=== PATIENT | female | born 1950 | race African-American/Black ===

== ENCOUNTER → 2016-04-27 | Outpatient (CLI) | payer MEDICARE, MEDICAID | LOC: RAD 09:08 | PROVIDERS: ATTEND Physician Assistant | DX: R51 Headache (principal) | CPT/HCPCS: 70450 ==

== ENCOUNTER 2016-10-11 09:38 | Emergency (ER) | payer MEDICARE, MEDICAID ==
[2016-10-11] MEDS ORDERED: PHENAZOPYRIDINE HCL 200 MG TABLET PO ONE (10:05)
--- NOTE | 2016-10-11 10:08 | ER Document Report ---
ED GI/ - General Chief Complaint: Flank Pain Stated Complaint: RIGHT SIDE FLANK PAIN Time Seen by Provider: 10/11/16 09:47 Notes: The patient is a 66-year-old female who presents with 2 days of constant right- sided abdominal pain with now radiation into right flank. She also started noticing some hematuria and dysuria today. She has never had a kidney stone in the past. She was feeling nauseous yesterday, but is no longer feeling any nausea. Denies fevers, chest pain, shortness of breath, numbness, tingling, blood thinner use, diarrhea or constipation. TRAVEL OUTSIDE OF THE [place] IN LAST 30 DAYS: No - Related Data Allergies/Adverse Reactions: phenytoin [From Dilantin] Allergy (Verified 10/11/16 10:15) Past Medical History - General Information source: Patient - Social History Smoking Status: Never Smoker Family History: Reviewed & Not Pertinent - Past Medical History Cardiac Medical History: Reports: Hx Hypertension Denies: Hx Coronary Artery Disease, Hx Heart Attack Pulmonary Medical History: Reports: Hx Bronchitis - 2011, Hx Pneumonia Denies: Hx Asthma, Hx COPD Neurological Medical History: Reports: Hx Seizures - childhood. Denies: Hx Cerebrovascular Accident Endocrine Medical History: Reports: Hx Diabetes Mellitus Type 2 Musculoskeltal Medical History: Reports Hx Arthritis - Hands Past Surgical History: Reports: Hx Section, Hx Hysterectomy - Immunizations Hx Diphtheria, Pertussis, Tetanus Vaccination: Yes Review of Systems - Review of Systems Notes: REVIEW OF SYSTEMS: CONSTITUTIONAL: -fevers, -chills EENT: -eye pain, -difficulty swallowing, -nasal congestion CARDIOVASCULAR:-chest pain, -syncope. RESPIRATORY: -cough, -SOB GASTROINTESTINAL: -abdominal pain, - nausea, -vomiting, -diarrhea GENITOURINARY: +dysuria, +hematuria MUSCULOSKELETAL: +right flank pain, -neck pain SKIN: -rash or skin lesions. HEMATOLOGIC: -easy bruising or bleeding. LYMPHATIC: -swollen, enlarged glands. NEUROLOGICAL: -altered mental status or loss of consciousness, -headache, - neurologic symptoms PSYCHIATRIC: -anxiety, -depression. ALL OTHER SYSTEMS REVIEWED AND NEGATIVE. Physical Exam - Vital signs Vitals: Temp Pulse Resp BP Pulse Ox 97.9 F 87 17 120/74 96 10/11/16 09:48 10/11/16 09:48 10/11/16 09:48 10/11/16 09:48 10/11/16 09:48 - Notes Notes: PHYSICAL EXAMINATION: GENERAL: Well-appearing, well-nourished and in no acute distress. HEAD: Atraumatic, normocephalic. EYES: Pupils equal round and reactive to light, extraocular movements intact, sclera anicteric, conjunctiva are normal. ENT: nares patent, oropharynx clear without exudates. Moist mucous membranes. NECK: Normal range of motion, supple without lymphadenopathy LUNGS: Breath sounds clear to auscultation bilaterally and equal. No wheezes rales or rhonchi. HEART: Regular rate and rhythm without murmurs ABDOMEN: Soft, mild suprapubic tenderness, normoactive bowel sounds. Right CVA tenderness. No guarding, no rebound. No masses appreciated. EXTREMITIES: Normal range of motion, no pitting or edema. No cyanosis. NEUROLOGICAL: Cranial nerves grossly intact. Normal speech, normal gait. Normal sensory and motor exams. PSYCH: Normal mood, normal affect. SKIN: Warm, Dry, normal turgor, no rashes or lesions noted. Course - Re-evaluation Re-evalutation: Urinalysis shows large amount of blood and large WBCs with positive leuk esterase. CT does not show any evidence of kidney stones or any other acute processes. Will treat patient for pyelonephritis with Keflex. She appears very well and labs are unremarkable. Given strict return precautions and she understands. - Vital Signs Vital signs: Temp Pulse Resp BP Pulse Ox 97.3 F 79 17 116/71 94 10/11/16 11:00 10/11/16 11:00 10/11/16 11:00 10/11/16 11:00 10/11/16 11:00 - Laboratory Result Diagrams: 10/11/16 10:08 10/11/16 10:08 Laboratory results interpreted by me: 10/11/16 10/11/16 10/11/16 09:52 10:08 10:08 Plt Count 132 L Glucose 187 H Urine Protein 100 H Urine Blood LARGE H Ur Leukocyte Esterase LARGE H Urine Ascorbic Acid 40 H - Diagnostic Test Radiology reviewed: Image reviewed, Reports reviewed Radiology results interpreted by me: CT A/P: NAD Discharge - Discharge Clinical Impression: Pyelonephritis, acute Condition: Stable Disposition: HOME, SELF-CARE Additional Instructions: PYELONEPHRITIS: Your evaluation shows evidence of pyelonephritis. This is an infection in the kidney. Typical symptoms are fever, pain in the flank, pain on urination, and frequent urination. Many cases of pyelonephritis can be treated at home. Hospital care may be necessary for patients who are very ill, or elderly or . Pyelonephritis is treated with antibiotics. Be sure to take all the medication as prescribed. Drink plenty of liquids (about three quarts per day) . You may take acetaminophen for fever. You should feel significantly improved within two days. You should have a recheck of your urine in about one week to insure that the infection is gone. Return for a re-examination if your symptoms worsen in any way -- such as high fever, shaking chills, severe weakness or dizziness, severe pain, or inability to pass your urine. ANTIBIOTIC THERAPY: You have been given an antibiotic prescription. It's important that you take all the medication, unless instructed otherwise by your physician. Failure to complete the entire course can result in relapse of your condition. Common side effects of antibiotics include nausea, intestinal cramping, or diarrhea. Women may develop vaginal yeast infections, and babies can get yeast (thrush) in the mouth following the use of antibiotics. Contact your physician if you develop significant side effects from this medication. Allergy to this antibiotic can result in hives, wheezing, faintness, or itching. If symptoms of allergy occur, stop the medication and call the doctor. CEPHALEXIN: The antibiotic you've been prescribed is a member of the cephalosporin class. This type of antibiotic covers a wide variety of infections, including those of the skin, lungs, and urinary tract. It's useful for staph infections. This antibiotic is slightly similar to the penicillin family. In rare cases , a person who is allergic to penicillin will also be allergic to this medication. If you have had a severe allergic reaction to penicillin, and have not taken this antibiotic since that time, notify your doctor. Antibiotics which cover many germs ("broad spectrum" antibiotics) are more likely to cause diarrhea or "yeast" infections. Women prone to vaginal yeast problems may suffer an attack after taking this antibiotic. In infants, oral thrush (white spots "stuck" on the cheek) or yeast diaper rash may result. See your doctor if these problems occur. Call at once if you develop itching, hives , shortness of breath, or lightheadedness. USE OF ACETAMINOPHEN (Tylenol): Acetaminophen may be taken for pain relief or fever control. It's much safer than aspirin, offering a wider range of "safe" dosages. It is safe during . Some brand names are Tylenol, Panadol, Datril, Anacin 3, Tempra, and Liquiprin. Acetaminophen can be repeated every four hours. The following are maximum recommended dosages: >89 pounds or adults 650 mg to 900 mg Acetaminophen can be repeated every four hours. Maximum dose not to exceed 4000 mg a day. FOLLOW-UP CARE: If you have been referred to a physician for follow-up care, call the physician s office for an appointment as you were instructed or within the next two days. If you experience worsening or a significant change in your symptoms, notify the physician immediately or return to the Emergency Department at any time for re-evaluation. Prescriptions: Cephalexin Monohydrate [Keflex 500 mg Capsule] 500 mg PO TID #30 capsule Phenazopyrid/Cran/Vit C/B.coag [Azo Urinary Tract Health Pack] 1 each PO Q8H PRN #9 tablet PRN Reason: Referrals: LORRI HAYS MD [ACTIVE STAFF] - Follow up as needed
[2016-10-11 10:11] LABS: APPEARANCE,URINE CLOUDY; BILIRUBIN,URINE NEGATIVE (NEGATIVE); GLUCOSE, URINE NEGATIVE (NEGATIVE); KETONES,URINE NEGATIVE (NEGATIVE); LEUKOCYTE ESTERASE,URINE LARGE (NEGATIVE); NITRITE,URINE NEGATIVE (NEGATIVE); PROTEIN,URINE 100 mg/dL (NEGATIVE); URINE SPECIFIC GRAVITY 1.023; UROBILINOGEN,URINE NEGATIVE mg/dL (<2.0)
[2016-10-11 10:19] LABS: ABSOLUTE EOSINOPHILS # (AUTO) 0.1 10^3/uL (0.0-0.6); ABSOLUTE LYMPHOCYTES (AUTO) 1.6 10^3/uL (0.5-4.7); ABSOLUTE MONOCYTES (AUTO) 0.4 10^3/uL (0.1-1.4); ABSOLUTE NEUT (AUTO) 4.6 10^3/uL (1.7-8.2); BASOPHILS % (AUTO) 0.3 % (0-2); EOSINOPHILS % (AUTO) 1.1 % (0-6); HEMATOCRIT 39.7 % (36.0-47.0); HEMOGLOBIN 12.9 g/dL (12.0-15.5); MEAN CORPUSCULAR HEMOGLOBIN 28.7 pg (27.0-33.4); MEAN CORPUSCULAR HGB CONC 32.6 g/dL (32.0-36.0); MEAN CORPUSCULAR VOLUME 88 fl (80-97); MONOCYTES % (AUTO) 5.7 % (3-13); RED BLOOD COUNT 4.51 10^6/uL (3.72-5.28); RED CELL DISTRIBUTION WIDTH 13.6 % (11.5-14.0); SEGMENTED NEUTROPHILS % (AUTO) 68.9 % (42-78); WHITE BLOOD COUNT 6.7 10^3/uL (4.0-10.5)
[2016-10-11] MEDS ORDERED: CEFTRIAXONE 1 GM/D5W RTU 50 ML IV ONE (10:19)
--- NOTE | 2016-10-11 10:27 | RADIOLOGY REPORT (SQ) ---
EXAM DESCRIPTION: CT LTD RENAL STONE PROTOCOL ON COMPLETED DATE/TIME: 10/11/2016 10:17 am REASON FOR STUDY: right flank pain COMPARISON: None. TECHNIQUE: CT scan of the abdomen and pelvis performed without intravenous or oral contrast. Images reviewed with lung, soft tissue, and bone windows. Reconstructed coronal and sagittal MPR images revi ewed. All images stored on PACS. All CT scanners at this facility use dose modulation, iterative reconstruction, and/or weight based d osing when appropriate to reduce radiation dose to as low as reasonably achievable (ALARA). [facility]: Dose Right [facility]: CareDose [facility]: Dose Right [facility]: Teradose 4D [facility]: Smart [employer] RADIATION DOSE: mGy. LIMITATIONS: None. FINDINGS: LOWER CHEST: No significant findings. No nodules or infiltrates. NON-CONTRASTED LIVER, SPLEEN, ADRENALS: Evaluation limited by lack of IV contrast. No identified sign ificant masses. PANCREAS: No masses. No peripancreatic inflammatory changes. GALLBLADDER: No identified stones by CT criteria. No inflammatory changes to suggest cholecystitis. RIGHT KIDNEY AND URETER: No suspicious masses. Assessment limited by lack of IV contrast. No signif icant calcifications. No hydronephrosis or hydroureter. LEFT KIDNEY AND URETER: No suspicious masses. Assessment limited by lack of IV contrast. No signifi cant calcifications. No hydronephrosis or hydroureter. AORTA AND RETROPERITONEUM: No aneurysm. No retroperitoneal masses or adenopathy. BOWEL AND PERITONEAL CAVITY: No obvious masses or inflammatory changes. No free fluid. APPENDIX: Normal. PELVIS, BLADDER, AND ABDOMINAL WALL:No abnormal masses. No free fluid. Bladder normal. BONES: No significant findings. OTHER: No other significant finding. IMPRESSION: NO SIGNIFICANT OR ACUTE PROCESS IN THE ABDOMEN OR PELVIS. TECHNICAL DOCUMENTATION: JOB ID: [id number] Quality ID # [id number]: Final reports with documentation of one or more dose reduction techniques (e.g., Au tomated exposure control, adjustment of the mA and/or kV according to patient size, use of iterative reconstruction technique) 2010 [employer]- All Rights Reserved
[2016-10-11] MEDS ORDERED: CEPHALEXIN 500 MG CAPSULE PO ONE (10:32)
[2016-10-11 10:35] LABS: ALANINE AMINOTRANSFERASE 25 U/L (9-52); ALBUMIN 3.9 g/dL (3.5-5.0); ALKALINE PHOSPHATASE 87 U/L (38-126); ANION GAP 10 (5-19); ASPARTATE AMINO TRANSFERASE 17 U/L (14-36); BILIRUBIN,DIRECT 0.2 mg/dL (0.0-0.4); BILIRUBIN,TOTAL 0.4 mg/dL (0.2-1.3); BLOOD UREA NITROGEN 16 mg/dL (7-20); CALCIUM 9.5 mg/dL (8.4-10.2); CARBON DIOXIDE 26 mmol/L (22-30); CHLORIDE 107 mmol/L (98-107); GLUCOSE 187 mg/dL (75-110); POTASSIUM 3.6 mmol/L (3.6-5.0); SODIUM 142.8 mmol/L (137-145); TOTAL PROTEIN 6.8 g/dL (6.3-8.2)
[2016-10-11 11:00] VITALS: BP 116/71
== END 2016-10-11 11:00 | disposition home or self-care (01) ==
LOC: ER 09:38
DX: N10 Acute pyelonephritis (principal); R10.9 Unspecified abdominal pain; R31.9 Hematuria, unspecified; R30.0 Dysuria; R11.0 Nausea
CPT/HCPCS: 99284; 36415; 87086; 85025; 80053; 81001; 76380; A9270 ×2; J3490

== ENCOUNTER → 2017-07-26 | Outpatient (CLI) | payer MEDICARE, MEDICAID ==
--- NOTE | 2017-07-26 16:53 | RADIOLOGY REPORT (SQ) ---
EXAM DESCRIPTION: MRI LUMBAR SPINE WITHOUT COMPLETED DATE/TIME: 07/26/2017 2:08 pm REASON FOR STUDY: LOW BACK PAIN (M54.5) M54.5 LOW BACK PAIN COMPARISON: CT abdomen pelvis 10/11/2016 TECHNIQUE: Sagittal and Axial imaging includes T1, T2, STIR and gradient echo sequences. Coronal T2/ HASTE imaging. LIMITATIONS: None. FINDINGS: VISUALIZED UPPER ABDOMEN: Limited evaluation. No acute or suspicious findings suggested. SEGMENTATION: No transitional anatomy. The lowest well-developed disc space is labeled L5-S1. ALIGNMENT: Anatomic. VERTEBRAE: Intact. BONE MARROW: Normal. No marrow replacement or reactive changes. DISC SIGNAL: Decreased T2 weighted intervertebral disc signal throughout the lumbar spine POSTERIOR ELEMENTS: Generally intact. No pars defect evident. HARDWARE: None in the spine. CORD AND CONUS: Conus is at the T12-L1 level SOFT TISSUES: No aortic aneurysm seen. No bulky retroperitoneal adenopathy or mass. No paraspinal mas s or fluid. T12-L1: No central or foraminal stenosis. L1-L2: No central or foraminal stenosis. Mild bilateral facet hypertrophy. L2-L3: No central or foraminal stenosis. Moderate bilateral facet hypertrophy. L3-L4: Mild central canal stenosis results from broad diffuse posterior disc bulging and bulky bilate ral facet and ligament hypertrophy. Mild bilateral inferior foraminal narrowing without exiting L3 n erve root impingement. L4-L5: Mild central canal stenosis results from broad diffuse posterior disc bulge and bony spurring and bulky bilateral facet and ligament hypertrophy. Mild inferior foraminal narrowing without exitin g L4 nerve root impingement. L5-S1: Minimal posterior disc bulging and bony spurring, asymmetric facet hypertrophy right greater t fang left. No central stenosis. Mild bilateral foraminal narrowing without exiting L5 nerve root imp ingement. LOWER THORACIC: Incompletely imaged. No stenosis seen. SACRUM: Visualized upper sacrum intact. OTHER: No other significant findings. IMPRESSION: Degenerative changes lower lumbar spine. TECHNICAL DOCUMENTATION: JOB ID: [id number] [employer]- All Rights Reserved Reading location - IP/workstation name: [email or web address]
== END ==
LOC: RAD 13:15
PROVIDERS: ATTEND Family Medicine
DX: M54.5 Low back pain (principal); M47.896 Other spondylosis, lumbar region
CPT/HCPCS: 72148

== ENCOUNTER 2017-08-01 08:03 | Emergency (ER) | payer MEDICARE, MEDICAID ==
--- NOTE | 2017-08-01 08:54 | RADIOLOGY REPORT (SQ) ---
EXAM DESCRIPTION: SHOULDER LEFT 2 OR MORE VIEWS COMPLETED DATE/TIME: 08/01/2017 8:45 am REASON FOR STUDY: fall COMPARISON: None. NUMBER OF VIEWS: Three views. TECHNIQUE: Internal rotation, external rotation, and Y view images acquired of the left shoulder. LIMITATIONS: None. FINDINGS: MINERALIZATION: Normal. BONES: No acute fracture or dislocation. No worrisome bone lesions. JOINTS: No dislocation. VISUALIZED LUNGS AND RIBS: No pneumothorax. No rib fracture. SOFT TISSUES: No radiopaque foreign body. OTHER: No other significant finding. IMPRESSION: NO RADIOGRAPHIC EVIDENCE OF ACUTE INJURY. TECHNICAL DOCUMENTATION: JOB ID: [id number] [employer]- All Rights Reserved Reading location - IP/workstation name: [email or web address]
[2017-08-01] MEDS ORDERED: LIDOCAINE 5% (700 MG) TRANSDERMAL ADH..PATCH TP ONE (09:12)
[2017-08-01] MEDS ORDERED: TRAMADOL HCL 50 MG TABLET PO ONE (09:12)
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
[2017-08-01 10:24] VITALS: BP 120/80
== END 2017-08-01 10:23 | disposition home or self-care (01) ==
LOC: ER 08:03
DX: M25.512 Pain in left shoulder (principal); E11.9 Type 2 diabetes mellitus without complications; R51 Headache; I10 Essential (primary) hypertension; Z90.710 Acquired absence of both cervix and uterus
CPT/HCPCS: 99283; 73030; A9270

== ENCOUNTER → 2017-09-18 | Outpatient (CLI) | payer MEDICARE, MEDICAID ==
--- NOTE | 2017-09-18 08:55 | RADIOLOGY REPORT (SQ) ---
EXAM DESCRIPTION: MRI LUMBAR SPINE WITHOUT COMPLETED DATE/TIME: 09/18/2017 8:43 am REASON FOR STUDY: LOW BACK PAIN M48.061 SPINAL STENOSIS, LUMBAR REGION WITHOUT NEUROGENIC CL COMPARISON: None. TECHNIQUE: Sagittal and Axial imaging includes T1, T2, STIR and gradient echo sequences. Coronal T2/ HASTE imaging. LIMITATIONS: None. FINDINGS: VISUALIZED UPPER ABDOMEN: Limited evaluation. No acute or suspicious findings suggested. SEGMENTATION: No transitional anatomy. The lowest well-developed disc space is labeled L5-S1. ALIGNMENT: Anatomic. VERTEBRAE: Intact. BONE MARROW: Normal. No marrow replacement or reactive changes. DISC SIGNAL: Disc signal and height loss particularly at L3-4 and L5-S1. Associated non acute appear ing Schmorl's nodes. POSTERIOR ELEMENTS: No pars defect appreciated. Lower lumbar degenerative facet overgrowth. HARDWARE: None in the spine. CORD AND CONUS: Normal in size and signal intensity. Conus at the appropriate level. SOFT TISSUES: No aortic aneurysm seen. No bulky retroperitoneal adenopathy or mass. No paraspinal mas s or fluid. L1-L2: No significant spinal stenosis or exit foraminal stenosis. L2-L3: No significant spinal stenosis or exit foraminal stenosis. L3-L4: Disc bulge, posterior ligament thickening and facet overgrowth with mild central stenosis. Mi ld bilateral foraminal stenosis. L4-L5: Posterior ligament thickening and facet overgrowth with mild central and foraminal stenosis. L5-S1: Disc and facet disease without significant stenosis. LOWER THORACIC: Incompletely imaged. No stenosis seen. SACRUM: Visualized upper sacrum intact. OTHER: No other significant findings. IMPRESSION: 1. Disc and facet disease without significant spinal stenosis or spinal malalignment. TECHNICAL DOCUMENTATION: JOB ID: [id number]- All Rights Reserved Reading location - IP/workstation name: [email or web address]
== END ==
LOC: RAD 07:55
PROVIDERS: ATTEND Orthopaedic Surgery
DX: M48.061 Spinal stenosis, lumbar region without neurogenic claudication (principal)
CPT/HCPCS: 72148

== ENCOUNTER 2018-11-13 12:29 | Emergency (ER) | payer MEDICARE, MEDICAID ==
[2018-11-13] MEDS ORDERED: KETOROLAC TROMETHAMINE INJ/PF 30 MG/1 ML SDV IM ONE (13:53)
--- NOTE | 2018-11-13 13:56 | ER Document Report ---
ED Medical Screen (RME) - General Chief Complaint: Vomiting Stated Complaint: VOMITING Time Seen by Provider: 11/13/18 13:40 Primary Care Provider: ELOISE DAVE MD [Primary Care Provider] - Follow up as needed Notes: Patient is a 68-year-old female with a history of type 2 diabetes, hypertension and COPD who presents to the emergency department with a chief complaint of right hand pain and vomiting. Patient states this morning she woke up with right hand swelling and pain to the inside of the right wrist and right thumb. Patient states this occurred around 6 AM this morning. Patient states she has vomited twice this morning. Patient states she has had no blood in her vomitus. Patient states 2 days ago she had bad diarrhea but has since improved. Patient denies abdominal pain. Patient states she did take Flexeril, Tylenol 3 and IcyHot without relief to the right hand pain. Patient denies a history of gout. TRAVEL OUTSIDE OF THE [place] IN LAST 30 DAYS: No - Related Data Allergies/Adverse Reactions: phenytoin [From Dilantin] Allergy (Verified 11/13/18 12:31) Past Medical History - Social History Frequency of alcohol use: None Drug Abuse: None - Past Medical History Cardiac Medical History: Reports: Hx Hypertension Denies: Hx Coronary Artery Disease, Hx Heart Attack Pulmonary Medical History: Reports: Hx Bronchitis - 2011, Hx COPD, Hx Pneumonia Denies: Hx Asthma Neurological Medical History: Reports: Hx Seizures - childhood. Denies: Hx Cerebrovascular Accident Endocrine Medical History: Reports: Hx Diabetes Mellitus Type 2 Renal/ Medical History: Denies: Hx Peritoneal Dialysis Musculoskeltal Medical History: Reports Hx Arthritis - Hands Past Surgical History: Reports: Hx Section, Hx Hysterectomy - Immunizations Hx Diphtheria, Pertussis, Tetanus Vaccination: Yes Physical Exam - Vital signs Vitals: Temp Pulse Resp BP Pulse Ox 98.0 F 57 L 17 116/72 96 11/13/18 12:38 11/13/18 12:38 11/13/18 12:38 11/13/18 12:38 11/13/18 12:38 Interpretation: Normal - Extremities Notes: Patient has slight edema to the right thumb. Patient has a strong right radial pulse. Patient is tender to the ventral aspect of the right wrist. There is no obvious erythema or lesions. Patient unable to make a fist due to significant pain. Course - Re-evaluation Re-evalutation: 11/13/18 13:56 Patient is requesting an x-ray. Patient denies a specific injury to the right wrist but states she has been taking care of her grandchildren is unsure if she injured it. Patient denies a history of gout. - Vital Signs Vital signs: Temp Pulse Resp BP Pulse Ox 98.0 F 57 L 17 116/72 96 11/13/18 12:38 11/13/18 12:38 11/13/18 12:38 11/13/18 12:38 11/13/18 12:38 Doctor's Discharge - Discharge Referrals: ELOISE DAVE MD [Primary Care Provider] - Follow up as needed
--- NOTE | 2018-11-13 14:23 | RADIOLOGY REPORT (SQ) ---
EXAM DESCRIPTION: WRIST RIGHT 2 VIEWS COMPLETED DATE/TIME: 11/13/2018 2:09 pm REASON FOR STUDY: right wrist and right hand pain COMPARISON: None. NUMBER OF VIEWS: Two views. TECHNIQUE: AP and lateral radiographic images acquired of the right wrist. LIMITATIONS: None. FINDINGS: MINERALIZATION: Normal. BONES: No acute fracture or dislocation. No worrisome bone lesions. Normal alignment. Degenerative changes 1st metacarpal carpal joint. SOFT TISSUES: No soft tissue swelling. No foreign body. OTHER: No other significant finding. IMPRESSION: No acute findings. Degenerative changes 1st metacarpal carpal joint. TECHNICAL DOCUMENTATION: JOB ID: [id number] [employer]- All Rights Reserved Reading location - IP/workstation name: [email or web address]
--- NOTE | 2018-11-13 14:23 | RADIOLOGY REPORT (SQ) ---
EXAM DESCRIPTION: HAND RIGHT 2 VIEWS COMPLETED DATE/TIME: 11/13/2018 2:09 pm REASON FOR STUDY: right wrist and right hand pain COMPARISON: None. EXAM PARAMETERS: NUMBER OF VIEWS: Two view. TECHNIQUE: AP, lateral and oblique radiographic images acquired of the right hand. LIMITATIONS: None. FINDINGS: MINERALIZATION: Normal. BONES: No acute fracture or dislocation. No worrisome bone lesions. No significant osteophytes. JOINTS: No erosions. No nelly-articular osteopenia. No chondrocalcinosis. SOFT TISSUES: No swelling. No calcifications. OTHER: No other significant finding. IMPRESSION: NEGATIVE STUDY OF THE RIGHT HAND. NO EXPLANATION FOR PAIN. TECHNICAL DOCUMENTATION: JOB ID: [id number] [employer]- All Rights Reserved Reading location - IP/workstation name: [email or web address]
[2018-11-13 14:27] LABS: ABSOLUTE EOSINOPHILS # (AUTO) 0.1 10^3/uL (0.0-0.6); ABSOLUTE MONOCYTES (AUTO) 0.5 10^3/uL (0.1-1.4); ABSOLUTE NEUT (AUTO) 3.4 10^3/uL (1.7-8.2); BASOPHILS % (AUTO) 0.7 % (0-2); EOSINOPHILS % (AUTO) 1.8 % (0-6); HEMATOCRIT 38.1 % (36.0-47.0); HEMOGLOBIN 12.6 g/dL (12.0-15.5); LYMPHOCYTES % (AUTO) 42.6 % (13-45); MEAN CORPUSCULAR HEMOGLOBIN 28.3 pg (27.0-33.4); MEAN CORPUSCULAR VOLUME 86 fl (80-97); MONOCYTES % (AUTO) 7.4 % (3-13); PLATELET COUNT 153 10^3/uL (150-450); RED BLOOD COUNT 4.45 10^6/uL (3.72-5.28); RED CELL DISTRIBUTION WIDTH 14.3 % (11.5-14.0); SEGMENTED NEUTROPHILS % (AUTO) 47.5 % (42-78); TOTAL CELLS COUNTED % (AUTO) 100 %; WHITE BLOOD COUNT 7.1 10^3/uL (4.0-10.5)
[2018-11-13 14:29] LABS: APPEARANCE,URINE SLIGHTLY-CLOUDY; BILIRUBIN,URINE NEGATIVE (NEGATIVE); COLOR,URINE YELLOW; GLUCOSE, URINE NEGATIVE (NEGATIVE); KETONES,URINE NEGATIVE (NEGATIVE); LEUKOCYTE ESTERASE,URINE NEGATIVE (NEGATIVE); NITRITE,URINE NEGATIVE (NEGATIVE); PROTEIN,URINE NEGATIVE (NEGATIVE); URINE SPECIFIC GRAVITY 1.019; UROBILINOGEN,URINE NEGATIVE mg/dL (<2.0)
[2018-11-13 14:36] LABS: ALBUMIN 4.2 g/dL (3.5-5.0); ALKALINE PHOSPHATASE 88 U/L (38-126); ANION GAP 7 (5-19); ASPARTATE AMINO TRANSFERASE 21 U/L (14-36); BILIRUBIN,DIRECT 0.2 mg/dL (0.0-0.4); BILIRUBIN,TOTAL 0.4 mg/dL (0.2-1.3); BLOOD UREA NITROGEN 12 mg/dL (7-20); CALCIUM 9.5 mg/dL (8.4-10.2); CARBON DIOXIDE 32 mmol/L (22-30); CHLORIDE 103 mmol/L (98-107); GLUCOSE 93 mg/dL (75-110); POTASSIUM 3.5 mmol/L (3.6-5.0); TOTAL PROTEIN 7.3 g/dL (6.3-8.2)
[2018-11-13] MEDS ORDERED: MAGNESIUM OXIDE 400 MG TABLET PO ONE (15:30)
[2018-11-13 16:20] VITALS: BP 124/95
--- NOTE | 2018-11-13 16:20 | ER Document Report ---
HPI - HPI Patient complains to provider of: right thumb/wrist pain and vomiting Time Seen by Provider: 11/13/18 13:40 Onset: This morning Onset/Duration: Gradual, Persistent Quality of pain: Achy, Cramping Severity: Moderate Pain Level: 3 Context: 68 yr old female pt, with the listed pmh, here for right thumb/wrist pain x 1 day. Pain worse after overuse lifting and playing with her grandchildren yesterday. History of carpal tunnel syndrome; however, states that feels different. She is right-handed. No surgeries on this hand. Triage note also states she had 2 episodes of a small amt of nonbloody nonbilious vomiting this morning; however, she states she ate some bad oatmeal and it came right back up after she ate oatmeal and she has had no further vomiting or nausea or other accompanied sx and she has had not return of sx. She denies any abdominal pain. She has tolerated p.o. since without any complication. No numbness, fever, weakness or tingling. otc meds helping some. hasn't sought care until now. no pain anywhere else. pt able to walk. denies intoxication. pain worse with movement and palpation. better with rest. no other fall or trauma or associated sx. no hx of this before. no cp or sob. Associated Symptoms: Body/muscle aches, Weakness Exacerbated by: Movement Relieved by: Remaining still Similar symptoms previously: No Recently seen / treated by doctor: No - ROS Systems Reviewed and Negative: Yes All other systems reviewed and negative - To include 10 systems, unless mentioned in the hpi. - REPRODUCTIVE Reproductive: DENIES: : - DERM Skin Color: Normal Past Medical History - General Information source: Patient - Social History Smoking Status: Never Smoker Frequency of alcohol use: None Drug Abuse: None Family History: Reviewed & Not Pertinent Patient has suicidal ideation: No Patient has homicidal ideation: No - Past Medical History Cardiac Medical History: Reports: Hx Hypertension Denies: Hx Coronary Artery Disease, Hx Heart Attack Pulmonary Medical History: Reports: Hx Bronchitis - 2011, Hx COPD, Hx Pneumonia Denies: Hx Asthma Neurological Medical History: Reports: Hx Seizures - childhood. Denies: Hx Cerebrovascular Accident Endocrine Medical History: Reports: Hx Diabetes Mellitus Type 2 - sugars well controlled per pt Renal/ Medical History: Denies: Hx Peritoneal Dialysis Musculoskeletal Medical History: Reports Hx Arthritis - Hands-on pain management Infectious Medical History: Reports: None Past Surgical History: Reports: Hx Section, Hx Hysterectomy - Immunizations Immunizations up to date: Yes Hx Diphtheria, Pertussis, Tetanus Vaccination: Yes Vertical Provider Document - CONSTITUTIONAL Agree With Documented VS: Yes Exam Limitations: No Limitations General Appearance: No Apparent Distress Notes: >>>> PHYSICAL_EXAM: GENERAL_APPEARANCE: well_nourished, alert, cooperative, no_acute_distress, no_obvious_discomfort. pleasant, obese elderly black female, smiling, speaking in full sentences, in no sign of pain or resp distress, no one is with her VITALS: reviewed, see vital signs table. HEAD: no_swelling\tenderness on the head. normocephalic. atraumatic. no lala signs. no raccoons eyes. EYES: PERRL, EOMI, conjunctiva_clear. NOSE: no_nasal_discharge. MOUTH: (-)decreased moisture. THROAT: no_tonsilar_inflammation, no_airway_obstruction. no_lymphadenopathy NECK: supple, no_neck_tenderness, full rom. full strength. no meningeal signs. no sign of central cord syndrome. BACK: no_back_tenderness. CHEST_WALL: no_chest_tenderness. no overlying skin changes LUNGS: no_wheezing, ctab (-)accessory muscle use, good air exchange bilateral . HEART: normal_rate, normal_rhythm ABDOMEN: normal_BS, soft, no_abd_tenderness, (-)guarding, (-)rebound, no distension or peritoneal signs. no cva ttp EXTREMITIES: strength 5/5 in all_extremities, good pulses in all_extremities, no_swelling\tenderness in the extremities other than over right proximal thumb, questionable right snuffbox tenderness, positive Seymour test. Negative Tinel and Phalen., no_edema. full rom. normal gait. good pulses. brisk cap refill. 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 no thenar or hypothenar atrophy. no overlying skin changes to suggest trauma. no shortening or rotation of the limbs. no obvious deformities. NEURO: motor and sensation intact, cranial nerves 2-12 intact, cerebellar fxn intact SKIN: warm, dry, good_color, no_rash. MENTAL_STATUS: speech_clear, oriented_X_3, normal_affect, responds_appropriately to questions. - INFECTION CONTROL TRAVEL OUTSIDE OF THE [place] IN LAST 30 DAYS: No Course - Re-evaluation Re-evalutation: 11/13/18 16:23 Pt here for right thumb/wrist pain after overusing it without any actual fall or trauma that is likely dequervain's tenosynovitis x 1 day. She was placed in a thumb spica splint here by the tech and advised to wear this for the next few days as needed for comfort or until cleared by pcp/pain management/ortho. Motor and sensation intact post splint checked by myself. Advised splint care. She does see Dr. Castro and has a prior hx of carpal tunnel which she states feels different. 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 pt informed of her findings. She is in pain management via dr villagomez; however, she only has about 3 Tylenol with codeine left. She also has Flexeril. Advised her she needs to call Dr. villagomez's office for a refill or possible adjustment of her medication. She can also continue to take her Flexeril which she states she still has plenty of. Ice/heat to the area. Advised symptomatic care. pt stated to triage she had some vomiting this morning; however, she informs me she just vomited a small amt twice without blood after eating some bad oatmeal this morning and sx have since resolved and not returned and she has tolerated po since without any return of vomiting or new sx and otherwise feels back to her baseline in regards to that. advised to drink plenty of fluids. Dawn diet. She has no abdominal tenderness to palpation on exam. Her labs were unremarkable other than a slightly low magnesium which was replaced. Patient informed of this and that she needs to follow-up with her PCP for recheck of this. advised to f/u with pcp/Ortho/pain management in 1-2 days. return for any worsening symptoms. vss. well appearing. satting well on ra. neurononfocal. pt understands and agrees to plan. On reexam, pt improved with tx listed. remained stable. nontoxic. well appearing. pain controlled. tolerating po. requesting to go home. neurononfocal. According to the [place] drug monitoring database she got 21 Tylenol with codeine 07/21/2018, 7 Tylenol with codeine 06/13/2018 and tramadol back [place] [address] villagomez but no other prescriptions since in the last 2 yrs. Documentation achieved through voice recording which my lead to some occasional accidental typographical errors. Extensive efforts have been made to proof read documentation to make sure these are the least as possible. Category Date Time Status Splint [Immobilize Extrem/Crutch (ED)] NOW Care 11/13/18 15:29 Ordered HAND RIGHT 2 VIEWS [RAD] Stat Exams 11/13/18 13:51 Completed WRIST RIGHT 2 VIEWS [RAD] Stat Exams 11/13/18 13:51 Completed ADD ON [ADD ON TESTING BLD IN LAB] [CHEM] Stat Lab 11/13/18 14:49 Ordered CBC WITH DIFF [HEME] Stat Lab 11/13/18 14:10 Completed COMPREHENSIVE METABOLIC PANEL [CHEM] Stat Lab 11/13/18 14:10 Completed LIPASE [CHEM] Stat Lab 11/13/18 14:50 Ordered MAGNESIUM [CHEM] Stat Lab 11/13/18 14:50 Ordered URINALYSIS [URIN] Stat Lab 11/13/18 14:10 Completed Ketorolac Tromethamine [Toradol Inj/Pf 30 mg/1 ml Sdv] Med 11/13/18 13:53 Discontinued 15 mg IM NOW ONE Magnesium Oxide [Mag-Ox 400 mg Tablet] Med 11/13/18 15:30 Once 400 mg PO NOW ONE 11/13/18 16:28 - Vital Signs Vital signs: Temp Pulse Resp BP Pulse Ox 98.0 F 57 L 17 116/72 96 11/13/18 12:38 11/13/18 12:38 11/13/18 12:38 11/13/18 12:38 11/13/18 12:38 11/13/18 16:27 Temp Pulse Resp BP Pulse Ox 11/13/18 16:19 97.5 F 54 L 124/95 H 96 11/13/18 12:38 98.0 F 57 L 17 116/72 96 - Laboratory Result Diagrams: 11/13/18 14:10 11/13/18 14:10 Laboratory results interpreted by me: 11/13/18 11/13/18 14:10 14:10 RDW 14.3 H Potassium 3.5 L Carbon Dioxide 32 H 11/13/18 16:27 Labs- Entire Visit 11/13/18 11/13/18 11/13/18 14:10 14:10 14:10 WBC 7.1 RBC 4.45 Hgb 12.6 Hct 38.1 MCV 86 MCH 28.3 MCHC 33.0 RDW 14.3 H Plt Count 153 Seg Neutrophils % 47.5 Lymphocytes % 42.6 Monocytes % 7.4 Eosinophils % 1.8 Basophils % 0.7 Absolute Neutrophils 3.4 Absolute Lymphocytes 3.0 Absolute Monocytes 0.5 Absolute Eosinophils 0.1 Absolute Basophils 0.0 Sodium 142.0 Potassium 3.5 L Chloride 103 Carbon Dioxide 32 H Anion Gap 7 BUN 12 Creatinine 0.56 Est GFR ( Amer) > 60 Est GFR (Non-Af Amer) > 60 Glucose 93 Calcium 9.5 Magnesium Total Bilirubin 0.4 Direct Bilirubin 0.2 Neonat Total Bilirubin Not Reportable Neonat Direct Bilirubin Not Reportable Neonat Indirect Bili Not Reportable AST 21 ALT 17 Alkaline Phosphatase 88 Total Protein 7.3 Albumin 4.2 Lipase Urine Color YELLOW Urine Appearance SLIGHTLY-CLOUDY Urine pH 5.0 Ur Specific [place] 1.019 Urine Protein NEGATIVE Urine Glucose (UA) NEGATIVE Urine Ketones NEGATIVE Urine Blood NEGATIVE Urine Nitrite NEGATIVE Urine Bilirubin NEGATIVE Urine Urobilinogen NEGATIVE Ur Leukocyte Esterase NEGATIVE Urine WBC (Auto) 1 Urine RBC (Auto) 1 Squamous Epi Cells Auto 9 Urine Mucus (Auto) RARE Urine Ascorbic Acid NEGATIVE 11/13/18 14:10 WBC RBC Hgb Hct MCV MCH MCHC RDW Plt Count Seg Neutrophils % Lymphocytes % Monocytes % Eosinophils % Basophils % Absolute Neutrophils Absolute Lymphocytes Absolute Monocytes Absolute Eosinophils Absolute Basophils Sodium Potassium Chloride Carbon Dioxide Anion Gap BUN Creatinine Est GFR ( Amer) Est GFR (Non-Af Amer) Glucose Calcium Magnesium 1.4 L Total Bilirubin Direct Bilirubin Neonat Total Bilirubin Neonat Direct Bilirubin Neonat Indirect Bili AST ALT Alkaline Phosphatase Total Protein Albumin Lipase 76.8 Urine Color Urine Appearance Urine pH Ur Specific [place] Urine Protein Urine Glucose (UA) Urine Ketones Urine Blood Urine Nitrite Urine Bilirubin Urine Urobilinogen Ur Leukocyte Esterase Urine WBC (Auto) Urine RBC (Auto) Squamous Epi Cells Auto Urine Mucus (Auto) Urine Ascorbic Acid - Diagnostic Test Radiology reviewed: Image reviewed, Reports reviewed Radiology results interpreted by me: 11/13/18 16:28 Hand X-Ray 11/13/18 13:51 IMPRESSION: NEGATIVE STUDY OF THE RIGHT HAND. NO EXPLANATION FOR PAIN. Wrist X-Ray 11/13/18 13:51 IMPRESSION: No acute findings. Degenerative changes 1st metacarpal carpal joint. Discharge - Discharge Clinical Impression: De Quervain's tenosynovitis, right, Hypomagnesemia Condition: Good Disposition: HOME, SELF-CARE Instructions: Tendonitis ([facility]) Additional Instructions: Follow-up with PCP/Ortho/pain management 1 to 2 days. Wear the splint until seen by orthopedist. Continue to take your Tylenol with codeine and Flexeril as needed for any pain. Call your pain management doctor for possible adjustment of your pain medicine if your current regimen is not controlling your pain. Ice/heat to the area. you need to follow-up with your primary care doctor for recheck of your magnesium as it was slightly low today. Return for any worsening symptoms. Referrals: BRANDEN VILLAGOMEZ MD [NO LOCAL MD] - Follow up tomorrow LETI TIM MD [ACTIVE STAFF] - Follow up tomorrow ELOISE DAVE MD [Primary Care Provider] - Follow up tomorrow
== END 2018-11-13 16:34 | disposition home or self-care (01) ==
LOC: ER 12:29
PROC: 2W3GX1Z Immobilization of Right Thumb using Splint (ICD-10-PCS; principal; 2018-11-13)
DX: M65.4 Radial styloid tenosynovitis [de Quervain] (principal); E83.42 Hypomagnesemia; M79.641 Pain in right hand; M25.531 Pain in right wrist; R11.10 Vomiting, unspecified; I10 Essential (primary) hypertension; J44.9 Chronic obstructive pulmonary disease, unspecified; E11.9 Type 2 diabetes mellitus without complications
CPT/HCPCS: 29130; 99283; 36415; 83690; 83735; 85025; 80053; 81001; 73120; 73100; A9270; J1885